=== PATIENT | male | born 1925 | race Caucasian/White ===

== ENCOUNTER 2016-06-13 13:56 | Emergency (ER) | payer MEDICARE, BC ==
[2016-06-13 14:28] VITALS: RESP 18
[2016-06-13] MEDS ORDERED: HYDROcodone/APAP 5-325MG 1 EACH TAB PO STA (14:36)
--- NOTE | 2016-06-13 14:54 | ED ---
General Adult HPI - General Chief complaint: Fall Stated complaint: Fell/Shoulder Pain Time Seen by Provider: 06/13/16 14:20 Source: patient, family, RN notes reviewed, old records reviewed Mode of arrival: wheelchair Limitations: no limitations - History of Present Illness Initial comments: This is an 89-year-old male to the ER for evaluation. States patient presents for evaluation of fall. Patient is not blood thinners patient had a fall at night secondary to loss of balance fell landing on his right shoulder and complaining of right shoulder pain and hitting his head. No loss of consciousness was able to ambulate after injury. Patient awoke this morning with increasing stiffness in his right upper extremity but he stated this time symptoms are improving, has no modifying factors for his pain - Related Data Home Medications Medication Instructions Recorded Confirmed Acetaminophen Tab [Tylenol Tab] 1,000 mg PO Q6HR PRN 06/13/16 06/13/16 Albuterol Inhaler [Ventolin Hfa 1 - 2 puff INHALATION RT-Q6H PRN 06/13/16 Inhaler] Allopurinol [Zyloprim] 100 mg PO HS 06/13/16 06/13/16 Aspirin [Adult Low Dose Aspirin EC] 81 mg PO DAILY 06/13/16 06/13/16 Atenolol [Tenormin] 50 mg PO BID 06/13/16 06/13/16 Budesonide [Pulmicort] 0.5 mg INHALATION RT-BID 06/13/16 06/13/16 Cetirizine HCl [Zyrtec] 10 mg PO DAILY 06/13/16 06/13/16 Ipratropium Nebulized [Atrovent 0.5 mg INHALATION RT-Q6H PRN 06/13/16 06/13/16 Nebulized] Losartan Potassium 50 mg PO DAILY 06/13/16 06/13/16 Meclizine [Antivert] 12.5 mg PO HS 06/13/16 06/13/16 Multivit-Min/FA/Lycopene/Lut 1 tab PO DAILY 06/13/16 06/13/16 [Centrum Silver Tablet] Omeprazole 20 mg PO DAILY 06/13/16 06/13/16 Simvastatin [Zocor] 20 mg PO Q48H 06/13/16 06/13/16 Ubidecarenone [Co Q-10] 100 mg PO Q48H 06/13/16 06/13/16 Vit C/E/Zn/Coppr/Lutein/Zeaxan 1 cap PO BID 06/13/16 06/13/16 [Preservision Areds 2 Softgel] Allergies Allergy/AdvReac Type Severity Reaction Status Date / Time Penicillins Allergy Unknown Verified 06/13/16 14:57 PENZONATE Allergy Unknown Uncoded 06/13/16 14:57 Review of Systems ROS Statement: Those systems with pertinent positive or pertinent negative responses have been documented in the HPI. ROS Other: All systems not noted in ROS Statement are negative. Past Medical History Past Medical History: Heart Failure, GERD/Reflux, Hypertension History of Any Multi-Drug Resistant Organisms: None Reported Additional Past Surgical History / Comment(s): Stent 2006, Retina surgery , cataract Past Psychological History: No Psychological Hx Reported Smoking Status: Former smoker Past Alcohol Use History: None Reported Past Drug Use History: None Reported General Exam Limitations: no limitations General appearance: alert, in no apparent distress Head exam: Absent: atraumatic (Patient has mild hematoma and abrasion to right scalp) Eye exam: Present: normal appearance, PERRL, EOMI. Absent: scleral icterus, conjunctival injection, periorbital swelling ENT exam: Present: normal exam, mucous membranes moist Neck exam: Present: normal inspection. Absent: tenderness, meningismus, lymphadenopathy Respiratory exam: Present: normal lung sounds bilaterally. Absent: respiratory distress, wheezes, rales, rhonchi, stridor Cardiovascular Exam: Present: regular rate, normal rhythm, normal heart sounds. Absent: systolic murmur, diastolic murmur, rubs, gallop, clicks GI/Abdominal exam: Present: soft, normal bowel sounds. Absent: distended, tenderness, guarding, rebound, rigid Extremities exam: Present: normal inspection, full ROM, normal capillary refill. Absent: tenderness, pedal edema, joint swelling, calf tenderness Back exam: Present: normal inspection Neurological exam: Present: alert, oriented X3, CN II-XII intact Psychiatric exam: Present: normal affect, normal mood Skin exam: Present: warm, dry, intact, normal color. Absent: rash Course Vital Signs 06/13/16 06/13/16 14:07 14:26 Temperature 98.6 F Pulse Rate 74 74 Respiratory 20 18 Rate Blood Pressure 114/62 136/68 O2 Sat by Pulse 95 95 Oximetry - Reevaluation(s) Reevaluation #1: 06/13/16 15:46 Patient's pain is improved Medical Decision Making - Medical Decision Making A abnormality status post fall, falcular last night, mild head contusion with head injury, CT negative x-ray negative patient also shoulder contusion, pain is controlled, we'll discharge patient with pain control for at night, patient in no acute distress and able to ambulate - Radiology Data Radiology results: report reviewed (CT brain C-spine negative for acute disease , chest x-ray and x-ray right shoulder negative for traumatic injury), image reviewed Disposition Clinical Impression: Fall, Contusion of right shoulder, Head injuries Disposition: HOME SELF-CARE Condition: Good Instructions: Fall Prevention for Older Adults (ED) Referrals: Deniz Gilbert MD [Primary Care Provider] - 1-2 days
--- NOTE | 2016-06-13 15:15 | CT ---
EXAMINATION TYPE: CT brain cspine wo con DATE OF EXAM: 06/13/2016 3:04 PM COMPARISON: NONE HISTORY: 89-year-old male with pain after fall. Right forehead injury CT DLP: 1462.4 mGycm Automated exposure control for dose reduction was used. Technique: Examination of the head was done in axial plane without intravenous contrast. Coronal and sagittal reconstructions performed. CT of the cervical spine was obtained in axial plane without intravenous injection of contrast mater ial. Coronal and sagittal reformatted images were obtained from the axial views for evaluation of f ractures, spinal alignment and canal. FINDINGS: Head: There is no evidence of acute intracranial hemorrhage, acute ischemic changes, mass, mass-effect, or extra-axial fluid collection. There is no effacement of cerebral sulci or basal subarachnoid cister ns. There is no midline shift. Penny-white matter distinction is preserved. There is mild right frontal scalp contusion without underlying calvarial fracture. Mild generalized supratentorial volume loss especially central cerebral atrophy with secondary mild p rominence to the ventricular system. Moderate to severe confluent white matter hypodensities in both cerebral hemispheres. Paranasal sinuses and mastoid air cells well pneumatized. Orbits and globes are intact. Cervical spine: No craniocervical junction abnormality, predental space widening, or prevertebral soft tissue swellin g. Normal alignment of the cervical spine though with a grade 1 anterolisthesis at C7-T1 on a degenerati ve basis. Discussion plate degenerative change at C4-C7 levels with associated hypertrophic facet and uncoverte bral joint arthropathy. Disc osteophyte complex mildly narrows the spinal canal at C5-C6. Degenerative changes contribute to variable moderate to severe neuroforaminal stenoses on both sides. Heterotopic ossification in the posterior soft tissues opposite C3-C6 levels. 1.1 cm hypodense nodule right lobe of the thyroid gland. Sagittal and coronal reformatted images confirm above findings. COMBINED IMPRESSION: 1. Mild right frontal scalp contusion without calvarial fracture. 2. No acute intracranial abnormality seen. Mild atrophy and moderate to severe confluent changes of c hronic small vessel ischemic disease. 3. No acute fracture of the cervical spine. There is a degenerative grade 1 anterolisthesis at C7-T1 and moderate to advanced multilevel spondylotic change as above. 4. A 1.1 cm right thyroid lobe nodule can be assessed on follow-up nonemergent thyroid ultrasound.
--- NOTE | 2016-06-13 15:32 | XR ---
EXAMINATION TYPE: XR chest 1V DATE OF EXAM: 06/13/2016 3:26 PM COMPARISON: 03/08/2012 HISTORY: 89-year-old male with pain after fall today TECHNIQUE: Single frontal view of the chest is obtained. FINDINGS: Heart is normal size. Mild elongation of the thoracic aorta. Diffuse interstitial prominence similar to prior. No consolidation or pleural effusion. IMPRESSION: Chronic changes without acute cardiopulmonary process.
--- NOTE | 2016-06-13 15:34 | XR ---
EXAMINATION TYPE: XR shoulder complete RT DATE OF EXAM: 06/13/2016 3:26 PM COMPARISON: NONE HISTORY: 89-year-old male with pain after fall today TECHNIQUE: 2 views FINDINGS: Moderate degenerative joint space narrowing with marginal spurring and subchondral sclerosis at the A C joint. There is sclerosis of the greater tuberosity. No tendinous or bursal calcification seen. No acute fracture or dislocation on these 2 views. IMPRESSION: 1. Moderate AC joint OA. 2. Some bony changes at the greater tuberosity suggest chronic rotator cuff tendinopathy. 3. No acute osseous abnormality seen.
[2016-06-13 15:57] VITALS: BP 114/75; PULSE 68; TEMP 98
== END 2016-06-13 16:04 | disposition home or self-care (01) ==
LOC: EC 13:56
DX: S40.011A Contusion of right shoulder, initial encounter (principal); S09.90XA Unspecified injury of head, initial encounter; S00.01XA Abrasion of scalp, initial encounter; S00.03XA Contusion of scalp, initial encounter; W18.30XA Fall on same level, unspecified, initial encounter; I11.0 Hypertensive heart disease with heart failure; I50.9 Heart failure, unspecified; K21.9 Gastro-esophageal reflux disease without esophagitis; Z79.82 Long term (current) use of aspirin; Z79.51 Long term (current) use of inhaled steroids; Z79.899 Other long term (current) drug therapy; Z88.0 Allergy status to penicillin; Z88.8 Allergy status to other drugs, medicaments and biological substances; Z87.891 Personal history of nicotine dependence
CPT/HCPCS: 70450; 71010; 72125; 99284

== ENCOUNTER 2016-09-30 23:18 | Emergency (ER) | payer MEDICARE, BC ==
[2016-09-30] MEDS ORDERED: SODIUM CHLORIDE 0.9% 1,000 ML IV STA (23:58)
[2016-10-01 00:20] LABS: Basophils % (A) 0 %; CH 29.1; CHCM 32.3; Eosinophils % (A) 0 %; HCT 41.6 % (39.0-53.0); HDW 2.68; HGB 13.3 gm/dL (13.0-17.5); Luc # (Auto) 0.16; Luc % (Auto) 1; Lymphocytes # (A) 2.2 k/uL (1.0-4.8); Lymphocytes % (A) 15 %; MCH 29.1 pg (25.0-35.0); MCV 90.9 fL (80.0-100.0); Mean Platelet Volume 7.8; Monocytes # (A) 0.6 k/uL (0-1.0); Monocytes % (A) 4 %; Neutrophils # (A) 11.2 k/uL (1.3-7.7); Neutrophils % (A) 79 %; RBC 4.58 m/uL (4.30-5.90); RDW 14.4 % (11.5-15.5); WBC 14.1 k/uL (3.8-10.6)
--- NOTE | 2016-10-01 00:27 | XR ---
EXAM: XR Abdomen Complete, 2 or More Views CLINICAL HISTORY: abdominal pain TECHNIQUE: Frontal view of the abdomen/pelvis with upright view of the abdomen. COMPARISON: No relevant prior studies available. FINDINGS: Intraperitoneal space: No pneumatosis or free air. Gastrointestinal tract: Nonobstructive bowel gas pattern. No dilation. Bones/joints: Marked degenerative changes of the left hip and mild degenerative changes of the right hip. Multilevel degenerative changes of the spine. No acute fracture. IMPRESSION: Normal abdominal x-rays.
--- NOTE | 2016-10-01 00:36 | ED ---
Abdominal Pain HPI - General Chief Complaint: Abdominal Pain Stated Complaint: Diarrhea/Not Urinating Time Seen by Provider: 09/30/16 23:38 Source: patient, RN notes reviewed Mode of arrival: wheelchair Limitations: no limitations - History of Present Illness Initial Comments: Is an 89-year-old male presenting to the emergency Department chief complaint of multiple episodes of diarrhea today and difficulty urinating. Patient reports that he was having some trouble with constipation therefore took 3 doses of milk of magnesia today. Patient reports that later on he did start to have diarrhea. Patient states that at that time he was not able to stop. Patient's son reports that they gave him appear made of an hour prior to arriving to the emergency department. Patient denies any abdominal pain, chest pain or shortness of breath. Patient states that he did not drink as much water coffee that he normally does today. He reports that he was able to eat some crackers and cookies this afternoon. Patient denies any vomiting. Patient reports that he thinks that he is dehydrated because he has not urinated very frequently today. Patient states he would have a frequent episodes of the diarrhea however not much stool was completed that time. - Related Data Home Medications Medication Instructions Recorded Confirmed Acetaminophen Tab [Tylenol Tab] 1,000 mg PO Q6HR PRN 06/13/16 06/13/16 Albuterol Inhaler [Ventolin Hfa 1 - 2 puff INHALATION RT-Q6H PRN 06/13/16 Inhaler] Allopurinol [Zyloprim] 100 mg PO HS 06/13/16 06/13/16 Aspirin [Adult Low Dose Aspirin EC] 81 mg PO DAILY 06/13/16 06/13/16 Atenolol [Tenormin] 50 mg PO BID 06/13/16 06/13/16 Budesonide [Pulmicort] 0.5 mg INHALATION RT-BID 06/13/16 06/13/16 Cetirizine HCl [Zyrtec] 10 mg PO DAILY 06/13/16 06/13/16 Ipratropium Nebulized [Atrovent 0.5 mg INHALATION RT-Q6H PRN 06/13/16 06/13/16 Nebulized] Losartan Potassium 50 mg PO DAILY 06/13/16 06/13/16 Meclizine [Antivert] 12.5 mg PO HS 06/13/16 06/13/16 Multivit-Min/FA/Lycopen/Lutein 1 tab PO DAILY 06/13/16 06/13/16 [Centrum Silver Tablet] Omeprazole 20 mg PO DAILY 06/13/16 06/13/16 Simvastatin [Zocor] 20 mg PO Q48H 06/13/16 06/13/16 Ubidecarenone [Co Q-10] 100 mg PO Q48H 06/13/16 06/13/16 Vit C/E/Zn/Coppr/Lutein/Zeaxan 1 cap PO BID 06/13/16 06/13/16 [Preservision Areds 2 Softgel] Previous Rx's Medication Instructions Recorded HYDROcodone/APAP 5-325MG [[place] 1 tab PO Q6HR PRN #30 tab 06/13/16 5-325] Allergies Allergy/AdvReac Type Severity Reaction Status Date / Time Penicillins Allergy Unknown Verified 09/30/16 23:25 PENZONATE Allergy Unknown Uncoded 09/30/16 23:25 Review of Systems ROS Statement: Those systems with pertinent positive or pertinent negative responses have been documented in the HPI. ROS Other: All systems not noted in ROS Statement are negative. Past Medical History Past Medical History: Heart Failure, GERD/Reflux, Hypertension History of Any Multi-Drug Resistant Organisms: None Reported Additional Past Surgical History / Comment(s): Stent 2006, Retina surgery / , cataract 99 Past Psychological History: No Psychological Hx Reported Smoking Status: Former smoker Past Alcohol Use History: None Reported Past Drug Use History: None Reported General Exam Limitations: no limitations General appearance: alert, in no apparent distress Head exam: Present: atraumatic, normocephalic, normal inspection Eye exam: Present: normal appearance, PERRL, EOMI. Absent: scleral icterus, conjunctival injection, periorbital swelling ENT exam: Present: normal exam, mucous membranes moist Neck exam: Present: normal inspection. Absent: tenderness, meningismus, lymphadenopathy Respiratory exam: Present: normal lung sounds bilaterally. Absent: respiratory distress, wheezes, rales, rhonchi, stridor Cardiovascular Exam: Present: regular rate, normal rhythm, normal heart sounds. Absent: systolic murmur, diastolic murmur, rubs, gallop, clicks GI/Abdominal exam: Present: soft, normal bowel sounds. Absent: distended, tenderness, guarding, rebound, rigid Extremities exam: Present: normal inspection, full ROM, normal capillary refill. Absent: tenderness, pedal edema, joint swelling, calf tenderness Back exam: Present: normal inspection Neurological exam: Present: alert, oriented X3, CN II-XII intact Psychiatric exam: Present: normal affect, normal mood Skin exam: Present: warm, dry, intact, normal color. Absent: rash Course Vital Signs 09/30/16 10/01/16 23:21 02:00 Temperature 99.7 F H 98.1 F Pulse Rate 73 76 Respiratory 16 18 Rate Blood Pressure 139/69 143/80 O2 Sat by Pulse 95 97 Oximetry Medical Decision Making - Medical Decision Making Is an 89-year-old male presenting to the emergency Department chief complaint of multiple episodes of diarrhea today and difficulty urinating. Patient reports that he was having some trouble with constipation therefore took 3 doses of milk of magnesia today. Patient reports that later on he did start to have diarrhea. Patient states that at that time he was not able to stop. Patient's son reports that they gave him appear made of an hour prior to arriving to the emergency department. Patient denies any abdominal pain, chest pain or shortness of breath. Patient states that he did not drink as much water coffee that he normally does today. He reports that he was able to eat some crackers and cookies this afternoon. Patient denies any vomiting. Patient reports that he thinks that he is dehydrated because he has not urinated very frequently today. Patient states he would have a frequent episodes of the diarrhea however not much stool was completed that time. Patient did urinate. He did have one other episode of diarrhea in the emergency department. Patient reports he has no abdominal tenderness or any other physical complaints. Patient was advised that this is a function is slightly elevated. Discussed close follow-up with primary care provider. Discussed that do not want to continue to use Imodium as this will liter cause constipation. Patient son and patient agreed treatment plan will comply. Return parameters were discussed. - Lab Data Result diagrams: 09/30/16 00:11 09/30/16 00:11 Lab Results 09/30/16 09/30/16 09/30/16 Range/Units 00:11 00:11 23:40 WBC 14.1 H (3.8-10.6) k/uL RBC 4.58 (4.30-5.90) m/uL Hgb 13.3 (13.0-17.5) gm/dL Hct 41.6 (39.0-53.0) % MCV 90.9 (80.0-100.0) fL MCH 29.1 (25.0-35.0) pg MCHC 32.0 (31.0-37.0) g/dL RDW 14.4 (11.5-15.5) % Plt Count 247 (150-450) k/uL Neutrophils % 79 % Lymphocytes % 15 % Monocytes % 4 % Eosinophils % 0 % Basophils % 0 % Neutrophils # 11.2 H (1.3-7.7) k/uL Lymphocytes # 2.2 (1.0-4.8) k/uL Monocytes # 0.6 (0-1.0) k/uL Eosinophils # 0.0 (0-0.7) k/uL Basophils # 0.0 (0-0.2) k/uL Sodium 140 (137-145) mmol/L Potassium 4.2 (3.5-5.1) mmol/L Chloride 101 (98-107) mmol/L Carbon Dioxide 28 (22-30) mmol/L Anion Gap 11 mmol/L BUN 28 H (9-20) mg/dL Creatinine 1.30 H (0.66-1.25) mg/dL Est GFR (MDRD) Af Amer >60 (>60 ml/min/1.73 sqM) Est GFR (MDRD) Non-Af 52 (>60 ml/min/1.73 sqM) Glucose 104 H (74-99) mg/dL Calcium 9.1 (8.4-10.2) mg/dL Total Bilirubin 0.7 (0.2-1.3) mg/dL AST 34 (17-59) U/L ALT 36 (21-72) U/L Alkaline Phosphatase 101 (38-126) U/L Total Protein 6.8 (6.3-8.2) g/dL Albumin 3.9 (3.5-5.0) g/dL Amylase 46 (30-110) U/L Lipase 107 (23-300) U/L Urine Color Yellow Urine Appearance Clear (Clear) Urine pH 6.5 (5.0-8.0) Ur Specific [place] 1.012 (1.001-1.035) Urine Protein Negative (Negative) Urine Glucose (UA) Negative (Negative) Urine Ketones Negative (Negative) Urine Blood Negative (Negative) Urine Nitrite Negative (Negative) Urine Bilirubin Negative (Negative) Urine Urobilinogen <2.0 (<2.0) mg/dL Ur Leukocyte Esterase Negative (Negative) Disposition Clinical Impression: Diarrhea Disposition: HOME SELF-CARE Condition: Good Instructions: Acute Diarrhea (ED) Additional Instructions: Visit follow-up with primary care provider tomorrow. Return to the emergency department if any alarming signs or symptoms occur. Patient advised to increase fluids, monitor for any fevers, chills or severe abdominal pain and return to the emergency department at once. Referrals: Deniz Gilbert MD [Primary Care Provider] - 1-2 days Time of Disposition: 01:38
[2016-10-01 00:39] LABS: ALT 36 U/L (21-72); AST 34 U/L (17-59); Alkaline Phosphatase 101 U/L (38-126); Amylase 46 U/L (30-110); Anion Gap 11 mmol/L; Blood Urea Nitrogen 28 mg/dL (9-20); Calcium 9.1 mg/dL (8.4-10.2); Carbon Dioxide 28 mmol/L (22-30); Chloride 101 mmol/L (98-107); Glucose 104 mg/dL (74-99); Non-African American GFR(MDRD) 52 (>60 ml/min/1.73 sqM); Potassium 4.2 mmol/L (3.5-5.1); Sodium 140 mmol/L (137-145); Total Bilirubin 0.7 mg/dL (0.2-1.3); Total Protein 6.8 g/dL (6.3-8.2)
[2016-10-01] MEDS ORDERED: SODIUM CHLORIDE 0.9% 500 ML IV ONE (01:00)
[2016-10-01 01:14] LABS: Appearance,Urine Clear (Clear); Bilirubin,Urine Negative (Negative); Glucose,Urine (UA) Negative (Negative); Ketones,Urine Negative (Negative); Leukocyte Esterase,Urine Negative (Negative); Nitrite,Urine Negative (Negative); PH, Urine 6.5 (5.0-8.0); Protein,Urine Negative (Negative); Specific Gravity,Urine 1.012 (1.001-1.035); UA Billing (MACRO vs. MICRO) CHEM; Urobilinogen,Urine <2.0 mg/dL (<2.0)
[2016-10-01 02:01] VITALS: BP 143/80; PULSE 76; RESP 18; TEMP 98.1
== END 2016-10-01 02:02 | disposition home or self-care (01) ==
LOC: EC 23:18
DX: R19.7 Diarrhea, unspecified (principal); R39.198 Other difficulties with micturition; I11.0 Hypertensive heart disease with heart failure; K21.9 Gastro-esophageal reflux disease without esophagitis; Z87.891 Personal history of nicotine dependence; Z79.82 Long term (current) use of aspirin; Z79.51 Long term (current) use of inhaled steroids; Z79.899 Other long term (current) drug therapy; Z88.0 Allergy status to penicillin; Z88.8 Allergy status to other drugs, medicaments and biological substances
CPT/HCPCS: 36415; 51798; 74000; 80053; 81003; 82150; 83690; 85025; 96360; 96361; 99284